=== PATIENT | female | born 1975 | race Caucasian/White ===

== ENCOUNTER → 2024-04-21 | Day surgery (SDC) | payer OTHER ==
[~2024-04-21] MED LIST: ACETAMINOPHEN 1000 MG/100 ML IV PRN; AMLODIPINE BESYL5 MG PO; ASPIRIN 325 MG TAB PO SCH; ASPIRIN81 MG PO; BUPROPION XL150 MG PO; CELEBREX100 MG PO; CELECOXIB 100 MG CAP PO SCH; DIPHENHYDRAMINE HCL INJ 50 MG/ML VIAL IV PRN; DOCUSATE SODIUM 100 MG CAP PO PRN; EPINEPHRINE HCL 1:1000 1ML 1 MG/ML AMP ONE; FENTANYL CITRATE/PF 100MCG/2 ML INJ ONE; GLYCOPYRROLATE INJ 0.2 MG/ML VIAL ONE; HYDROCODONE/APAP 5MG-325MG TAB PO PRN; HYDROCODONE/APAP 7.5MG-325MG 1 EA TAB PO PRN; KETAMINE 50MG/5ML SYR ONE; LIDOCAINE HCL 2% LOCAL 20 ML VIAL ONE; LIDOCAINE HCL 2% LOCAL INJ 5 ML SDV VIAL INJ ONE; MIDAZOLAM HCL 2 MG/2 ML VIAL ONE; NEOSTIGMINE 1 MG/ML 10ML VIAL ONE; ONDANSETRON HCL INJ 2MG/ML 2ML 2 MG/ML VIAL IV PRN; ONDANSETRON HCL INJ 2MG/ML 2ML 2 MG/ML VIAL ONE; PREDNISONE5 MG PO; PROPOFOL IV EMULSION 10 MG/ML 20 ML VIAL ONE; RINVOQ30 MG PO; ROCURONIUM BROMIDE 10 MG/ML 5ML VIAL IV ONE; ROPIVACAINE 0.5% 5 MG/ML 30 ML SDV ONE; ROPIVACAINE 246.25 MG, EPINEPHRINE HCL 1:1000 1ML 0.5 MG, CLONIDINE HCL 0.08 MG, KETORO... INJ ONE; SEVOFLURANE INHAL SOLN 250 ML PEN BTL ONE; SODIUM CHLORIDE 0.9% 500ML 500 ML ONE; TRANEXAMIC ACID 20 ML ONE; Vancomycin IV 500 MG ONE
[2024-04-21] MEDS: GABAPENTIN 300 MG CAP ONE (09:30)
[2024-04-21] MEDS: LACTATED RINGER'S 1,000 ML ONE (09:30)
[2024-04-21] MEDS: CELECOXIB 200 MG CAP ONE (09:30)
[2024-04-21] MEDS: DEXAMETHASONE SOD PHOS 10 MG/1 ML VIAL ONE (09:30)
[2024-04-21] MEDS: CEFAZOLIN SODIUM 2 GM ONE (09:39)
[2024-04-21 10:10] LABS: BASOPHILS # (AUTO) 0.1 (0.0-0.1); EOSINOPHILS # (AUTO) 0.1 (0.0-0.4); EOSINOPHILS % 1.2 % (0.0-6.0); HEMATOCRIT 37.9 % (34.2-44.1); HEMOGLOBIN 12.5 g/dL (12.0-16.0); LYMPHOCYTES # (AUTO) 0.8 (1.0-3.2); MEAN CORPUSCULAR HEMOGLOBIN 34.2 pg (28-32); MEAN CORPUSCULAR VOLUME 103.8 fL (81-99); MONOCYTES # (AUTO) 0.5 (0.2-0.8); MONOCYTES % 10.6 % (4.4-11.3); NEUTROPHILS # (AUTO) 3.5 (2.1-6.9); NEUTROPHILS % 70.8 % (38.7-80.0); PLATELET COUNT 401 x10e3/uL (140-360); RED BLOOD COUNT 3.65 x10e6/uL (3.6-5.1); RED CELL DISTRIBUTION WIDTH 13.9 % (11.7-14.4); WHITE BLOOD COUNT 4.99 x10e3/uL (4.8-10.8)
[2024-04-21 12:13] VITALS: TEMP 98.1
[2024-04-21] MEDS: FENTANYL CITRATE/PF 100MCG/2 ML INJ ONE (12:30)
[2024-04-21] MEDS: HYDROMORPHONE 1MG/1ML INJ ONE (13:11)
[2024-04-21] MEDS: HYDROCODONE/APAP 7.5MG-325MG 1 EA TAB ONE (14:40)
[2024-04-21 14:45] VITALS: BP 128/78; PULSE 62; RESP 16; O2SAT 98
== END | disposition home health service (06) ==
LOC: OR 08:36
PROVIDERS: ATTEND Specialist
DX: M06.852 Other specified rheumatoid arthritis, left hip (principal); B15.9 Hepatitis A without hepatic coma; I10 Essential (primary) hypertension; F32.A Depression, unspecified; Z88.8 Allergy status to other drugs, medicaments and biological substances; Z79.82 Long term (current) use of aspirin; Z79.899 Other long term (current) drug therapy
CPT/HCPCS: 36415; 72170; 81025; 85025; 86850; 86900; C1776; J0171; J1100; J1170; J1885; J2001; J2250; J2405; J2710; J2795; J3370; J7040